=== PATIENT | male | born 1985 | race Caucasian/White ===

== ENCOUNTER → 2016-03-06 | Outpatient (CLI) | payer OTHER ==
--- NOTE | 2016-03-06 20:00 | CT ---
EXAMINATION TYPE: CT chest w con DATE OF EXAM: 03/06/2016 6:27 PM COMPARISON: NONE HISTORY: follow up scan per patient CT DLP: 201.9 mGycm Automated exposure control for dose reduction was used. CONTRAST: CT scan of the chest is performed with IV Contrast, patient injected with 100 mL of Omnipaque 300. FINDINGS: LUNGS: There are 2 pulmonary nodules within the left upper lobe which are retrospectively stable both measuring approximately 8 x 4 mm no consolidative pneumonia. No pleural effusion or pneumothorax. Ad ditional 1 cm nodule right lower lobe. Within the right lower lobe superior segment image 48 there is a 6 mm nodule. Also retrospectively stable. MEDIASTINUM: There are no greater than 1 cm hilar or mediastinal lymph nodes. No pericardial effusi on is seen. OTHER: No additional significant abnormality is seen. IMPRESSION: 1. Stable multiple pulmonary nodules the largest within the right lower lobe. Recommend 6 month follo w-up to confirm stability of the lesions and stability over the course of a two-year period.
== END | disposition home or self-care (01) ==
LOC: RADCTMAIN 17:53
PROVIDERS: ATTEND Thoracic Surgery (Cardiothoracic Vascular Surgery)
DX: R91.8 Other nonspecific abnormal finding of lung field (principal)
CPT/HCPCS: 71260; Q9967